=== PATIENT | male | born 1980 | race Caucasian/White ===

== ENCOUNTER 2017-05-28 14:00 | Emergency (ER) | payer OTHER ==
[~2017-05-28] VITALS: Ht 195.6 cm; Wt 126.3 kg
[2017-05-28 14:03] VITALS: BP 134/80
[2017-05-28] MEDS ORDERED: KETOROLAC 30 MG/1 ML IM ONE (15:00)
[2017-05-28] MEDS ORDERED: KETOROLAC 30 MG/1 ML ONE (15:15)
== END 2017-05-28 15:46 | disposition home or self-care (01) ==
LOC: ED 15:30
DX: M25.551 Pain in right hip (principal); I10 Essential (primary) hypertension; F43.10 Post-traumatic stress disorder, unspecified
CPT/HCPCS: 73502; 96372; 99284; J1885

== ENCOUNTER → 2017-11-17 | Outpatient (CLI) | payer MEDICAID ==
[~2017-11-17] MED LIST: CELE200C PO; DIVA500T2 PO; DIVA500T4 PO; OMEP40CA6 PO; TIZA4TAB PO; ZOLP-413 PO
[2017-11-17 15:05] LABS: MICROSCOPIC NOT IND
[2017-11-17 15:10] LABS: BASOPHILS # (AUTO) 0.08 x10^3/uL (0-0.1); BASOPHILS % (AUTO) 1 % (0-1); EOSINOPHILS # (AUTO) 0.18 x10^3/uL (0-0.4); EOSINOPHILS % (AUTO) 2 % (1-7); LYMPHOCYTES % (AUTO) 33 % (22-44); MD NO; MEAN CORPUSCULAR HEMOGLOBIN 30.6 pg (27.5-34.5); MEAN CORPUSCULAR HGB CONC 34.5 g/dL (33.2-36.2); MEAN CORPUSCULAR VOLUME 88.9 fL (81-97); MEAN PLATELET VOLUME 8.9 fL (7.4-10.4); MONOCYTES # (AUTO) 0.57 x10^3/uL (0.2-0.8); MONOCYTES % (AUTO) 8 % (2-9); NEUTROPHILS # (AUTO) 4.32 x10^3/uL (1.8-6.8); NEUTROPHILS % (AUTO) 56 % (42-75); PLATELET COUNT 176 x10^3/uL (130-400); RED BLOOD COUNT 5.38 x10^6/uL (4.38-5.82); RED CELL DISTRIBUTION WIDTH 13.2 % (9.4-14.8)
[2017-11-17 15:14] LABS: CULTURE INDICATED? NO
[2017-11-17 15:22] LABS: ALANINE AMINOTRANSFERASE 60 U/L (12-78); ALBUMIN 4.4 g/dL (3.4-5.0); ANION GAP 7 mmol/L (5-15); C-REACTIVE PROTEIN, QUANT 0.06 mg/dL (0.02-0.49); CHLORIDE 109 mmol/L (98-107); CREATININE 0.96 mg/dL (0.7-1.3)
[2017-11-17 15:25] LABS: HCT (SEDRATE) 48.2 % (39.2-51.8)
[2017-11-17 15:29] LABS: ALKALINE PHOSPHATASE 57 U/L (45-117); BILIRUBIN,TOTAL 0.6 mg/dL (0.2-1.0); TOTAL PROTEIN 7.6 g/dL (6.4-8.2)
== END ==
LOC: STAR 13:53
PROVIDERS: ATTEND Orthopaedic Surgery
DX: Z01.818 Encounter for other preprocedural examination (principal); M25.551 Pain in right hip; M19.90 Unspecified osteoarthritis, unspecified site; E11.9 Type 2 diabetes mellitus without complications; M25.571 Pain in right ankle and joints of right foot; S92.124A Nondisplaced fracture of body of right talus, initial encounter for closed fracture; X58.XXXA Exposure to other specified factors, initial encounter; Y93.89 Activity, other specified; Y92.89 Other specified places as the place of occurrence of the external cause; Y99.8 Other external cause status
CPT/HCPCS: 36415; 80053; 81003; 85025; 85651; 86140; 87081; 93005

== ENCOUNTER 2017-11-26 08:12 | Inpatient (IN) | payer MEDICAID ==
[~2017-11-26] VITALS: Ht 193 cm; Wt 129.7 kg
[~2017-11-26 08:12] MED LIST changes: +EPINEPHRINE 1 MG/ML, 1ML ONE; +KETOROLAC 60 MG/2 ML ONE; +ROPIvacaine/PF 0.2%, 20 ML ONE; +SODIUM CHLORIDE 0.9% 100 ML ONE; +TRANEXAMIC ACID 100 MG/ML, 10ML ONE; +VANCOMYCIN 1,000 MG ONE
[2017-11-26] MEDS ORDERED: FENTANYL PF 250 MCG/5ML ONE (08:27)
[2017-11-26] MEDS ORDERED: MIDAZOLAM 1 MG/ML, 2ML ONE (08:27)
[2017-11-26] MEDS ORDERED: PROPOFOL 10 MG/ML, 20ML ONE (08:28)
[2017-11-26] MEDS ORDERED: LIDOCAINE-MPF 2% ,5ML ONE (08:28)
[2017-11-26] MEDS ORDERED: CEFAZOLIN 1,000 MG ONE ×2 (08:29)
[2017-11-26] MEDS ORDERED: SODIUM CHLORIDE 0.9% PF 10ML ONE (08:29)
[2017-11-26] MEDS ORDERED: SCOPOLAMINE 1MG PATCH TD STA (08:31)
[2017-11-26] MEDS ORDERED: VANCOMYCIN PER PHARMACY MC STA (08:31)
[2017-11-26] MEDS ORDERED: LACTATED RINGERS 1,000 ML IV SCH (08:44)
[2017-11-26] MEDS ORDERED: GABA300C10 PO (08:46)
[2017-11-26 09:15] VITALS: BP 142/83
[2017-11-26] MEDS ORDERED: SCOPOLAMINE PATCH, 1.5MG PATCH.TD72 TD ONE (09:21)
[2017-11-26] MEDS ORDERED: VANCOMYCIN 2,300 MG in SODIUM CHLORIDE 0.9% 500 ML IV ONE (09:30)
[2017-11-26] MEDS ORDERED: VANCOMYCIN 2,000 MG in SODIUM CHLORIDE 0.9% 500 ML IV ONE (09:30)
[2017-11-26] MEDS ORDERED: KETAMINE 10 MG/ML, 20ML ONE (09:37)
[2017-11-26] MEDS ORDERED: PHENYLEPHRINE 10 MG/ML ONE (09:37)
[2017-11-26] MEDS ORDERED: ROCURONIUM 10 MG/ML,10ML ONE (09:37)
[2017-11-26] MEDS ORDERED: DEXAMETHASONE 4 MG/ML, 1ML ONE ×2 (09:46)
[2017-11-26] MEDS ORDERED: HYDROmorphone 2 MG/ML, 1ML ONE ×4 (10:14→20:15)
[2017-11-26] MEDS ORDERED: DEXMEDETOMIDINE 200 MCG/2 ML ONE (10:30)
[2017-11-26] MEDS ORDERED: ONDANSETRON 2MG/ML, 2ML IVPush PRN (10:30)
[2017-11-26] MEDS ORDERED: PROMETHAZINE 25 MG/ML, 1ML IV PRN (10:30)
[2017-11-26] MEDS ORDERED: LABETALOL 5MG/ML, 20ML IV PRN (10:30)
[2017-11-26] MEDS ORDERED: OXYcodone 5 MG/5 ML ORAL.SOL UDC PO PRN (10:30)
[2017-11-26] MEDS ORDERED: ALBUTEROL SULFATE 2.5 MG/3 ML NPPB PRN (10:30)
[2017-11-26] MEDS ORDERED: hydrALAzine 20 MG/ML, 1ML IV PRN (10:30)
[2017-11-26] MEDS ORDERED: MEPERIDINE/PF 25MG/0.5ML IVPush PRN (10:30)
[2017-11-26] MEDS ORDERED: LORazepam 2 MG/ML, 1ML IVPush PRN (10:30)
[2017-11-26] MEDS ORDERED: ACETAMINOPHEN 325 MG TABLET PO PRN (10:30)
[2017-11-26] MEDS ORDERED: ONDANSETRON 2MG/ML, 2ML ONE ×5 (12:19→15:39)
[2017-11-26] MEDS ORDERED: MEPERIDINE/PF 50 MG/ML ONE (13:00)
[2017-11-26] MEDS ORDERED: ONDANSETRON 2MG/ML, 2ML IV PRN (13:30)
[2017-11-26] MEDS ORDERED: CEFAZOLIN PMX 2GM/50ML 50 ML IVPB SCH (13:30)
[2017-11-26] MEDS ORDERED: ACETAMINOPHEN 650 MG/20.3 ML UDC PO PRN (13:30)
[2017-11-26] MEDS ORDERED: MAGNESIUM HYDROXIDE 8%, 30ML UDC PO PRN (13:30)
[2017-11-26] MEDS ORDERED: SENNA/DOCUSATE TABLET PO PRN (13:30)
[2017-11-26] MEDS ORDERED: BISACODYL 10 MG SUPP PR PRN (13:30)
[2017-11-26] MEDS ORDERED: ALUMINUM/MAG/SIMETHICONE 30 ML UDC PO PRN (13:30)
[2017-11-26] MEDS ORDERED: ACETAMINOPHEN 650 MG/20.3 ML UDC ONE (13:59)
[2017-11-26] MEDS ORDERED: OXYcodone 5 MG/5 ML ORAL.SOL UDC ONE (13:59)
[2017-11-26] MEDS ORDERED: FENTANYL PF 100 MCG/2ML ONE (13:59)
[2017-11-26] MEDS ORDERED: CEFAZOLIN 2,000 MG in DEXTROSE 5% 50 ML IVPB SCH (14:00)
[2017-11-26] MEDS: FENTANYL PF 100 MCG/2ML IV PRN ×2 (14:03→14:08)
[2017-11-26] MEDS ORDERED: GLYCOPYRROLATE 0.4 MG/2 ML, 2ML ONE (14:07)
[2017-11-26] MEDS: HYDROmorphone 1 MG/ML, 1ML IV PRN ×6 (14:10→20:23)
[2017-11-26] MEDS: CEFAZOLIN PMX 2GM/50ML 50 ML IVPB SCH (18:19)
[2017-11-26] MEDS: D5%-0.45NACL+KCL 20MEQ 1,000 ML IV SCH ×2 (18:19→23:00)
[2017-11-26] MEDS: OXYcodone IR 5MG TABLET PO PRN ×2 (18:19→22:38)
[2017-11-26 20:15] VITALS: BP 147/66
[2017-11-26] MEDS: DOCUSATE 100 MG CAPSULE PO SCH (20:21)
[2017-11-26] MEDS: TIZANIDINE 4MG TABLET PO SCH (20:21)
[2017-11-26] MEDS ORDERED: ZOLPIDEM 10MG TABLET PO SCH (21:00)
[2017-11-26] MEDS ORDERED: DIVALPROEX 500 MG TAB.ER.24H PO SCH (21:00)
[2017-11-27 00:40] VITALS: BP 110/61
[2017-11-27] MEDS: CEFAZOLIN PMX 2GM/50ML 50 ML IVPB SCH (01:40)
[2017-11-27] MEDS: OXYcodone IR 5MG TABLET PO PRN ×3 (02:32→10:27)
[2017-11-27 05:09] VITALS: BP 99/50
[2017-11-27] MEDS: D5%-0.45NACL+KCL 20MEQ 1,000 ML IV SCH (05:26)
[2017-11-27] MEDS ORDERED: OMEPRAZOLE 20 MG CAPSULE.DR PO SCH (07:30)
[2017-11-27] MEDS: DOCUSATE 100 MG CAPSULE PO SCH (07:33)
[2017-11-27] MEDS: TIZANIDINE 4MG TABLET PO SCH (07:33)
[2017-11-27] MEDS ORDERED: DIVALPROEX 500 MG TAB.ER.24H PO SCH (08:00)
[2017-11-27] MEDS ORDERED: MULTIVITAMINS/MINERALS TABLET PO SCH (09:00)
[2017-11-27 09:49] VITALS: BP 133/65
[2017-11-27 10:15] VITALS: BP 144/79
[2017-11-27 10:32] VITALS: BP 155/78
[2017-11-27] MEDS ORDERED: OXYC5CAP2 PO (11:38)
[2017-11-27] MEDS ORDERED: DOCU-131 PO (11:39)
[2017-11-27] MEDS ORDERED: ASPI-650 PO (11:39)
[2017-11-27] MEDS ORDERED: ACET650S21 PO (11:47)
[2017-11-27] MEDS ORDERED: KETOROLAC 30 MG/1 ML IV SCH (13:30)
[2017-11-27] MEDS ORDERED: ASPIRIN 325 MG TABLET EC PO SCH (18:00)
== END 2017-11-27 12:00 | disposition home or self-care (01) | DRG 468 ==
LOC: ORIP 08:12 → 4NOR 15:47 → DCLOUNGE 11-27 11:40
PROVIDERS: ADMIT Orthopaedic Surgery; ATTEND Orthopaedic Surgery
PROC: 0SP90JZ Removal of Synthetic Substitute from Right Hip Joint, Open Approach (ICD-10-PCS; 2017-11-26)
PROC: 0SR906A Replacement of Right Hip Joint with Oxidized Zirconium on Polyethylene Synthetic Substitute, Uncemented, Open Approach (ICD-10-PCS; principal; 2017-11-26 10:00)
DX: M16.11 Unilateral primary osteoarthritis, right hip (principal); M21.70 Unequal limb length (acquired), unspecified site
CPT/HCPCS: 36415; 72170; 86850; 86900; C1713; J0171; J0690; J1100; J1170; J1885; J2175; J2250; J2405; J2704; J2795; J3010; J3370; J3490; C1776; J2370; J3480; J7040; J7120

== ENCOUNTER 2018-04-07 19:26 | Emergency (ER) | payer MEDICAID ==
[~2018-04-07] VITALS: Ht 193 cm; Wt 130.0 kg
[~2018-04-07 19:26] MED LIST changes: +ACET650S21 PO; +ASPI-650 PO; +DOCU-131 PO; -EPINEPHRINE 1 MG/ML, 1ML ONE; +GABA300C10 PO; -KETOROLAC 60 MG/2 ML ONE; +OXYC5CAP2 PO; -ROPIvacaine/PF 0.2%, 20 ML ONE; -SODIUM CHLORIDE 0.9% 100 ML ONE; -TRANEXAMIC ACID 100 MG/ML, 10ML ONE; -VANCOMYCIN 1,000 MG ONE
[2018-04-07 19:29] VITALS: BP 137/85
[2018-04-07] MEDS ORDERED: SODIUM CHLORIDE FLUSH 10ML SYR IVF ONE (20:00)
[2018-04-07] MEDS ORDERED: MORPHINE SULFATE 4 MG/ML, 1ML IVPush PRN (20:00)
[2018-04-07] MEDS ORDERED: ONDANSETRON ODT 4 MG PO ONE (20:00)
== END 2018-04-07 21:34 | disposition home or self-care (01) ==
LOC: ED 21:20
DX: M79.662 Pain in left lower leg (principal); M25.552 Pain in left hip; I10 Essential (primary) hypertension
CPT/HCPCS: 99284

== ENCOUNTER 2018-04-11 23:09 | Emergency (ER) | payer MEDICAID ==
[~2018-04-11] VITALS: Ht 195.6 cm; Wt 133.4 kg
[2018-04-11 23:11] VITALS: BP 160/118
[2018-04-12 01:17] LABS: BASOPHILS # (AUTO) 0.06 x10^3/uL (0-0.1); BASOPHILS % (AUTO) 1 % (0-1); EOSINOPHILS % (AUTO) 7 % (1-7); LYMPHOCYTES # (AUTO) 1.81 x10^3/uL (1-3.4); LYMPHOCYTES % (AUTO) 21 % (22-44); MD NO; MEAN CORPUSCULAR HEMOGLOBIN 27.7 pg (27.5-34.5); MEAN CORPUSCULAR HGB CONC 33.6 g/dL (33.2-36.2); MEAN CORPUSCULAR VOLUME 82.6 fL (81-97); MEAN PLATELET VOLUME 8.8 fL (7.4-10.4); MONOCYTES # (AUTO) 0.64 x10^3/uL (0.2-0.8); MONOCYTES % (AUTO) 7 % (2-9); NEUTROPHILS % (AUTO) 64 % (42-75); PLATELET COUNT 286 x10^3/uL (130-400); RED BLOOD COUNT 4.94 x10^6/uL (4.38-5.82); RED CELL DISTRIBUTION WIDTH 15.1 % (9.4-14.8)
[2018-04-12] MEDS ORDERED: ONDANSETRON ODT 4 MG ONE (01:17)
[2018-04-12 01:29] LABS: ALANINE AMINOTRANSFERASE 28 U/L (12-78); ALBUMIN 4.1 g/dL (3.4-5.0); ANION GAP 7 mmol/L (5-15); CALCIUM 9.1 mg/dL (8.5-10.1); CHLORIDE 110 mmol/L (98-107); CREATININE 0.95 mg/dL (0.7-1.3)
[2018-04-12] MEDS ORDERED: ONDANSETRON ODT 4 MG PO ONE (01:30)
[2018-04-12 01:31] LABS: ALKALINE PHOSPHATASE 115 U/L (45-117); BILIRUBIN,TOTAL 0.4 mg/dL (0.2-1.0); TOTAL PROTEIN 7.6 g/dL (6.4-8.2)
== END 2018-04-12 02:15 | disposition home or self-care (01) ==
LOC: ED 04-12 02:11
DX: L03.116 Cellulitis of left lower limb (principal); I10 Essential (primary) hypertension; Z88.6 Allergy status to analgesic agent; Z88.0 Allergy status to penicillin
CPT/HCPCS: 36415; 80053; 84550; 85025; 93971; 99285; Q0162

== ENCOUNTER 2018-07-11 15:26 | Emergency (ER) | payer MEDICAID ==
[~2018-07-11] VITALS: Ht 193 cm; Wt 133.7 kg
[2018-07-11 16:24] LABS: BASOPHILS # (AUTO) 0.04 x10^3/uL (0-0.1); BASOPHILS % (AUTO) 1 % (0-1); EOSINOPHILS # (AUTO) 0.27 x10^3/uL (0-0.4); EOSINOPHILS % (AUTO) 4 % (1-7); LYMPHOCYTES # (AUTO) 1.95 x10^3/uL (1-3.4); LYMPHOCYTES % (AUTO) 27 % (22-44); MD NO; MEAN CORPUSCULAR HEMOGLOBIN 28.7 pg (27.5-34.5); MEAN CORPUSCULAR HGB CONC 34.7 g/dL (33.2-36.2); MEAN CORPUSCULAR VOLUME 82.6 fL (81-97); MEAN PLATELET VOLUME 9.3 fL (7.4-10.4); MONOCYTES # (AUTO) 0.56 x10^3/uL (0.2-0.8); MONOCYTES % (AUTO) 8 % (2-9); NEUTROPHILS # (AUTO) 4.38 x10^3/uL (1.8-6.8); NEUTROPHILS % (AUTO) 61 % (42-75); PLATELET COUNT 273 x10^3/uL (130-400); RED CELL DISTRIBUTION WIDTH 15.8 % (9.4-14.8)
[2018-07-11 16:29] VITALS: BP 117/75
[2018-07-11 16:29] LABS: ALBUMIN 4.1 g/dL (3.4-5.0); ANION GAP 8 mmol/L (5-15); CALCIUM 8.9 mg/dL (8.5-10.1); CHLORIDE 111 mmol/L (98-107); CREATININE 1.17 mg/dL (0.7-1.3)
== END 2018-07-11 17:02 | disposition home or self-care (01) ==
LOC: ED 16:45
DX: S91.041A Puncture wound with foreign body, right ankle, initial encounter (principal); I10 Essential (primary) hypertension; Z87.891 Personal history of nicotine dependence; X58.XXXA Exposure to other specified factors, initial encounter; Y93.89 Activity, other specified; Y92.098 Other place in other non-institutional residence as the place of occurrence of the external cause; Y99.8 Other external cause status
CPT/HCPCS: 36415; 80048; 82040; 85025; 99285